=== PATIENT | female | born 2000 | race American Indian/Alaskan Native ===

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

== ENCOUNTER 2020-04-02 23:05 | Emergency (ER) | payer MEDICAID, OTHER ==
--- NOTE | 2020-04-02 23:13 | EDM.PDOCBH ---
ED HPI GENERAL MEDICAL PROBLEM - General Chief Complaint: Drug or Alcohol Abuse Stated Complaint: AMBULANCE Time Seen by Provider: 04/02/20 23:09 Source of Information: Reports: Family History Limitations: Reports: Other (unresponse) - History of Present Illness INITIAL COMMENTS - FREE TEXT/NARRATIVE: EMS arrived at scene unresponsive pt who did respond to IV insertion but to n arcan 2mg. did see a needle at scene. 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 ED EXAM, BEHAVIORAL HEALTH - Physical Exam Exam: See Below Exam Limited By: No Limitations General Appearance: Other (unresponsive react to pain) Eye Exam: Bilateral Eye: PERRL (pupils ER @ 3mm) Throat/Mouth: No Airway Compromise Head: Atraumatic Neck: Normal Inspection Respiratory/Chest: No Respiratory Distress, Lungs Clear, Normal Breath Sounds Cardiovascular: Regular Rate, Rhythm GI/Abdominal: Normal Bowel Sounds, No Distention (Female) Exam: Deferred Rectal (Female) Exam: Deferred Back Exam: Normal Inspection Extremities: Normal Inspection Neurological: Other (response to pain) Psychiatric: Other (respond to pain) Skin Exam: Warm, Dry, Normal color COURSE, BEHAVIORAL HEALTH COMP - Course Vital Signs: Last Vital Signs Temp 36.2 C 04/03/20 01:05 Pulse 78 04/03/20 01:28 Resp 14 04/03/20 01:28 BP 102/58 L 04/03/20 01:28 Pulse Ox 98 04/03/20 01:28 Orders, Labs, Meds: Active Orders 24 hr Category Date Time Status Urinary Catheter Insertion [Insert Urinary Catheter] [ Care 04/03/20 01:31 Ordered OM.PC] Stat Laboratory Tests 04/02/20 04/02/20 04/02/20 Range/Units 23:20 23:20 23:20 WBC (5.0-10.0) 10^3/uL RBC (4.2-5.4) 10^6/uL Hgb (12.0-16.0) g/dL Hct (37.0-47.0) % MCV (80-100) fL MCH (27.0-34.0) pg MCHC (33.0-35.0) g/dL Plt Count (150-450) 10^3/uL Neut % (Auto) (42.2-75.2) % Lymph % (Auto) (20.5-50.1) % [place] % (Auto) (2-8) % Eos % (Auto) (1.0-3.0) % Baso % (Auto) (0.0-1.0) % Sodium (136-145) mmol/L Potassium (3.5-5.1) mmol/L Chloride (98-107) mmol/L Carbon Dioxide (21-32) mmol/L Anion Gap (7-13) mEq/L BUN (7-18) mg/dL Creatinine (0.55-1.02) mg/dL Est Cr Clr Drug Dosing Estimated GFR (MDRD) BUN/Creatinine Ratio (No establ ref range) Glucose (74-99) mg/dL Calcium (8.5-10.1) mg/dL Total Bilirubin (0.2-1.0) mg/dL AST (15-37) U/L ALT (14-59) U/L Alkaline Phosphatase (46-116) U/L Total Protein (6.4-8.2) g/dL Albumin (3.4-5.0) g/dL Globulin Albumin/Globulin Ratio Urine Color Yellow (YELLOW) Urine Appearance Clear (CLEAR) Urine pH 5.5 (5.0-9.0) Ur Specific [place] 1.015 (1.005-1.030) Urine Protein Negative (NEGATIVE) Urine Glucose (UA) Negative (NEGATIVE) Urine Ketones Negative (NEGATIVE) Urine Occult Blood Negative (NEGATIVE) Urine Nitrite Negative (NEGATIVE) Urine Bilirubin Negative (NEGATIVE) Urine Urobilinogen 0.2 (0.2-1.0) mg/dL Ur Leukocyte Esterase Negative (NEGATIVE) Urine HCG, Qual Negative Urine Opiates Screen Negative (NEGATIVE) Ur Oxycodone Screen Negative (NEGATIVE) Urine Methadone Screen Negative (NEGATIVE) Ur Barbiturates Screen Negative (NEGATIVE) U Tricyclic Antidepress Negative (NEGATIVE) Ur Phencyclidine Scrn Negative (NEGATIVE) Ur Amphetamine Screen Negative (NEGATIVE) U Methamphetamines Scrn Positive H (NEGATIVE) Urine MDMA Screen Negative (NEGATIVE) U Benzodiazepines Scrn Negative (NEGATIVE) Urine Cocaine Screen Negative (NEGATIVE) U Marijuana (THC) Screen Negative (NEGATIVE) Ethyl Alcohol (0) mg/dL SARS CoV-2 RNA Rapid BRAYAN (NEGATIVE) 04/02/20 04/02/20 04/02/20 Range/Units 23:20 23:20 23:42 WBC 6.6 (5.0-10.0) 10^3/uL RBC 4.90 (4.2-5.4) 10^6/uL Hgb 14.0 (12.0-16.0) g/dL Hct 41.4 (37.0-47.0) % MCV 84.5 D (80-100) fL MCH 28.6 (27.0-34.0) pg MCHC 33.8 (33.0-35.0) g/dL Plt Count 244 (150-450) 10^3/uL Neut % (Auto) 70.5 (42.2-75.2) % Lymph % (Auto) 21.8 (20.5-50.1) % [place] % (Auto) 5.7 (2-8) % Eos % (Auto) 1.5 (1.0-3.0) % Baso % (Auto) 0.5 (0.0-1.0) % Sodium 141 (136-145) mmol/L Potassium 3.3 L (3.5-5.1) mmol/L Chloride 106 (98-107) mmol/L Carbon Dioxide 23 (21-32) mmol/L Anion Gap 15.3 H (7-13) mEq/L BUN 8 (7-18) mg/dL Creatinine 0.50 L (0.55-1.02) mg/dL Est Cr Clr Drug Dosing TNP Estimated GFR (MDRD) > 60 BUN/Creatinine Ratio 16.0 (No establ ref range) Glucose 104 H (74-99) mg/dL Calcium 7.8 L (8.5-10.1) mg/dL Total Bilirubin 0.3 (0.2-1.0) mg/dL AST 38 H (15-37) U/L ALT 39 (14-59) U/L Alkaline Phosphatase 118 H (46-116) U/L Total Protein 6.5 (6.4-8.2) g/dL Albumin 2.9 L (3.4-5.0) g/dL Globulin 3.6 Albumin/Globulin Ratio 0.81 Urine Color (YELLOW) Urine Appearance (CLEAR) Urine pH (5.0-9.0) Ur Specific [place] (1.005-1.030) Urine Protein (NEGATIVE) Urine Glucose (UA) (NEGATIVE) Urine Ketones (NEGATIVE) Urine Occult Blood (NEGATIVE) Urine Nitrite (NEGATIVE) Urine Bilirubin (NEGATIVE) Urine Urobilinogen (0.2-1.0) mg/dL Ur Leukocyte Esterase (NEGATIVE) Urine HCG, Qual Urine Opiates Screen (NEGATIVE) Ur Oxycodone Screen (NEGATIVE) Urine Methadone Screen (NEGATIVE) Ur Barbiturates Screen (NEGATIVE) U Tricyclic Antidepress (NEGATIVE) Ur Phencyclidine Scrn (NEGATIVE) Ur Amphetamine Screen (NEGATIVE) U Methamphetamines Scrn (NEGATIVE) Urine MDMA Screen (NEGATIVE) U Benzodiazepines Scrn (NEGATIVE) Urine Cocaine Screen (NEGATIVE) U Marijuana (THC) Screen (NEGATIVE) Ethyl Alcohol 396 (0) mg/dL SARS CoV-2 RNA Rapid BRAYAN Positive H (NEGATIVE) Medications Discontinued Medications Generic Name Dose Route Start Last Admin Trade Name Freq PRN Reason Stop Dose Admin Naloxone HCl 2 mg 04/02/20 23:28 04/02/20 23:32 Narcan IVPUSH 04/02/20 23:29 2 mg ONETIME ONE Administration Naloxone HCl 2 mg 04/02/20 23:38 04/03/20 00:02 Narcan IVPUSH 04/02/20 23:39 2 mg ONETIME ONE Administration Re-Assessment/Re-Exam: due to decrease in respiratory rate 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 case discussed with Dr Concetta FENG @ [facility] who kindly accepted pt. Departure - Departure Time of Disposition: 01:54 Disposition: DC/Tfer to Acute Hospital 02 Condition: Fair Clinical Impression: Unresponsive, Methamphetamine abuse, Lab test positive for detection of COVID- 19 virus Alcohol intoxication Qualifiers: Complication of substance-induced condition: with unspecified complication Qualified Code(s): F10.929 - Alcohol use, unspecified with intoxication, unspecified - Discharge Information Forms: Interfacility Transfer EMTALA - My Orders Last 24 Hours: My Active Orders 04/03/20 01:31 Urinary Catheter Insertion [Insert Urinary Catheter] [OM.PC] Stat - Assessment/Plan Last 24 Hours: My Active Orders 04/03/20 01:31 Urinary Catheter Insertion [Insert Urinary Catheter] [OM.PC] Stat
[2020-04-02] MEDS ORDERED: Naloxone 2 MG/2 ML Syringe IVPUSH ONE ×2 (23:28→23:38)
[2020-04-02 23:52] LABS: ANION GAP 15.3 mEq/L (7-13); CHLORIDE,CL 106 mmol/L (98-107); SODIUM,NA 141 mmol/L (136-145)
--- NOTE | 2020-04-03 00:49 | CT ---
PROCEDURE INFORMATION: Exam: CT Head Without Contrast Exam date and time: 04/03/2020 12:18 AM Age: 19 years old Clinical indication: Other: Uncooperative --positive for meth and covid; Additional info: Unresponsive TECHNIQUE: Imaging protocol: Computed tomography of the head without contrast. Radiation optimization: All CT scans at this facility use at least one of these dose optimization techniques: automated exposure control; mA and/or kV adjustment per patient size (includes targeted exams where dose is matched to clinical indication); or iterative reconstruction. COMPARISON: No relevant prior studies available. FINDINGS: Limitations: Study is limited by issues with positioning and extensive motion. Brain: The barnett-white differentiation is preserved. No intracranial mass collection or hemorrhage is seen. Cerebral ventricles: The ventricular size and sulcal pattern is normal. Bones/joints: The temporal bones are symmetric and unremarkable. Paranasal sinuses: The visualized paranasal sinuses are normal. Mastoid air cells: Mastoid air cells well aerated. Soft tissues: There is no soft tissue abnormality seen. IMPRESSION: No acute intracranial findings.
[2020-04-03 01:29] VITALS: BP 102/58; PULSE 78
== END 2020-04-03 01:54 ==
LOC: EDBD → DL.ED 23:05 → EDUNIT# 23:05 → DL.ED 04-03 01:54
DX: U07.1 COVID-19 (principal); F10.129 Alcohol abuse with intoxication, unspecified; R40.1 Stupor; F15.10 Other stimulant abuse, uncomplicated; Z88.2 Allergy status to sulfonamides; Z88.1 Allergy status to other antibiotic agents; Y90.8 Blood alcohol level of 240 mg/100 ml or more
CPT/HCPCS: 36415; 51702; 70450; 80053; 80305-QW; 80307; 81003; 81025; 85025; 96374; 99285-25; J2310; U0002

== ENCOUNTER 2021-02-11 20:21 | Emergency (ER) | payer MEDICAID ==
[2021-02-11] MEDS ORDERED: Sulfamethoxazole/Trimethoprim 800-160 MG Tab PO ONE (21:22)
[2021-02-11 21:23] VITALS: BP 127/84; PULSE 102
--- NOTE | 2021-02-11 21:29 | EDM.PDOC ---
ED HPI GENERAL MEDICAL PROBLEM - General Chief Complaint: Skin Complaint Stated Complaint: BOIL / SKIN LESION Time Seen by Provider: 02/11/21 21:20 Source of Information: Reports: Patient History Limitations: Reports: No Limitations - History of Present Illness INITIAL COMMENTS - FREE TEXT/NARRATIVE: Pt is here for a sore on her right buttock. It started as a boil about 5 days a go and has been getting worse. She has been keeping a bandage on it as it has been draining. She denies any previous sores or MRSA. No fevers or chills. She reports it is very sore and it is getting hard to sit so she came in for evaluation. Onset: Gradual Duration: Day(s): (5) Right Buttock Pain Score (Numeric/FACES): 2 - Related Data Allergies Allergy/AdvReac Type Severity Reaction Status Date / Time No Known Drug Allergies Allergy Severe Other Verified 02/11/21 21:23 Home Meds: Home Meds . 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: Musculoskeletal History: Reports: RA, Other (See Below) Other Musculoskeletal History: Juvenile RA Neurological History: Reports: None Psychiatric History: Reports: None Endocrine/Metabolic History: Reports: None Hematologic History: Reports: None Immunologic History: Reports: None Other Immunologic History: juvenille RA Oncologic (Cancer) History: Reports: None Dermatologic History: Reports: None - Infectious Disease History Infectious Disease History: Reports: None - Past Surgical History Head Surgeries/Procedures: Reports: None Social & Family History - Family History Family Medical History: No Pertinent Family History - Tobacco Use Tobacco Use Status *Q: Never Tobacco User - Caffeine Use Caffeine Use: Reports: Soda - Recreational Drug Use Recreational Drug Use: No - Living Situation & Occupation Living situation: Reports: with Family Occupation: Student ED ROS GENERAL - Review of Systems Review Of Systems: Comprehensive ROS is negative, except as noted in HPI. ED EXAM, SKIN/RASH Exam: See Below Exam Limited By: No Limitations General Appearance: Alert, WD/WN, No Apparent Distress Eye Exam: Bilateral Eye: Normal Inspection Ears: Normal External Exam Throat/Mouth: Normal Voice, No Airway Compromise Head: Atraumatic, Normocephalic Neck: Supple Respiratory/Chest: No Respiratory Distress, No Accessory Muscle Use Cardiovascular: Normal Peripheral Pulses, Regular Rate, Rhythm GI/Abdominal: Soft, No Distention (Female) Exam: Deferred Rectal (Female) Exam: Deferred Back Exam: Normal Inspection, Full Range of Motion Extremities: Normal Inspection, Normal Range of Motion Neurological: Alert, Oriented, Normal Cognition Psychiatric: Normal Affect, Normal Mood Skin: Warm, Other (open and draining abscess on right buttock about 1.5 cm in diameter with surrounding erythema and induration about 4 cm in diameter. Tender to palpation, passively draining. ) Lymphatic: No Adenopathy Course - Vital Signs Last Recorded V/S: Last Vital Signs Temp 98.8 F 02/11/21 21:13 Pulse 102 H 02/11/21 21:13 Resp 16 02/11/21 21:13 BP 127/84 02/11/21 21:13 Pulse Ox 98 02/11/21 21:13 - Orders/Labs/Meds Orders: Active Orders 24 hr Category Date Time Status CULTURE WOUND [RM] Stat Lab 02/11/21 21:23 Ordered Meds: Medications Discontinued Medications Generic Name Dose Route Start Last Admin Trade Name Freq PRN Reason Stop Dose Admin Trimethoprim/Sulfamethoxazole 1 tab 02/11/21 21:22 Sulfamethoxazole/Trimethoprim 800-160 Mg Tab PO 02/11/21 21:23 ONETIME ONE - Re-Assessments/Exams Free Text/Narrative Re-Assessment/Exam: Bactrim given in ER. Pt given Rx for Bactrim. Discussed wound care. Pt verbalized understanding and is ready for discharge. 02/11/21 21:33 Departure - Departure Time of Disposition: 21:34 Disposition: Home, Self-Care 01 Condition: Fair Clinical Impression: Abscess of buttock, right - Discharge Information *PRESCRIPTION DRUG MONITORING PROGRAM REVIEWED*: Not Applicable *COPY OF PRESCRIPTION DRUG MONITORING REPORT IN PATIENT OLIVIA: Not Applicable Instructions: Skin Abscess, [id number] Additional Instructions: Bactrim twice daily for 10 days Continue to cover it for the drainage Try to avoid putting pressure on it if possible Follow up with your primary care provider in 3-5 days. If symptoms worsen, call/return to the ER. Sepsis Event Note (ED) - Evaluation Sepsis Screening Result: No Definite Risk - Focused Exam Vital Signs: Vital Signs Temp Pulse Resp BP Pulse Ox 02/11/21 21:13 98.8 F 102 H 16 127/84 98 - My Orders Last 24 Hours: My Active Orders 02/11/21 21:23 CULTURE WOUND [RM] Stat - Assessment/Plan Last 24 Hours: My Active Orders 02/11/21 21:23 CULTURE WOUND [RM] Stat
== END 2021-02-11 21:43 | disposition home or self-care (01) ==
LOC: DL.ED 20:21
DX: L02.31 Cutaneous abscess of buttock (principal)
CPT/HCPCS: 87070; 87077; 87186; 99283; A9270

== ENCOUNTER 2022-03-28 17:17 | Emergency (ER) | payer MEDICAID ==
[2022-03-28 17:38] VITALS: BP 133/93; PULSE 88
[2022-03-28] MEDS ORDERED: Lidocaine 1% 10 ML MDV INJECT ONE (18:12)
[2022-03-28] MEDS ORDERED: Bacitracin Oint 1 GM U/D Packet TOP ONE (18:36)
== END 2022-03-28 18:54 | disposition home or self-care (01) ==
LOC: DL.ED 17:17
DX: S61.011A Laceration without foreign body of right thumb without damage to nail, initial encounter (principal); F17.210 Nicotine dependence, cigarettes, uncomplicated; W26.0XXA Contact with knife, initial encounter
CPT/HCPCS: 12001; 99283